=== PATIENT | female | born 1995 ===

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

== ENCOUNTER 2019-12-18 05:09 | Inpatient (IN) ==
[2019-12-18] MEDS ORDERED: LACTATED RINGERS 1,000 ML IV PRN (05:19)
[2019-12-18] MEDS ORDERED: MEPERIDINE 50 MG/1 ML VIAL IV PRN (05:19)
[2019-12-18] MEDS ORDERED: ONDANSETRON 4 MG/2 ML VIAL IV PRN (05:19)
[2019-12-18] MEDS ORDERED: BUTORPHANOL 2 MG/ML VIAL IV PRN (05:19)
[2019-12-18] MEDS ORDERED: OXYTOCIN/LR 20 UNIT/1,000 ML BAG IV SCH (05:30)
[2019-12-18 05:46] LABS: Basophils % 0.6 % (0.0-0.8); Eosinophils # 0.2 10*3/uL (0.0-0.87); Eosinophils % 3.3 % (0.00-10.9); Hematocrit 41.5 VOL% (35.7-47.0); Hemoglobin 13.5 GM/DL (12.0-16.0); Immature Granulocytes % 0.3 %; Immature Granulocytes Absolute 0.02 #; Lymphocytes # 1.9 10*3/uL (1.4-4.0); Lymphocytes % 27.8 % (21.3-54.2); Mean Corpuscular HGB Conc 32.5 GM/DL (32-36); Mean Corpuscular Volume 91.4 FL (87-102); Mean Platelet Volume 11.2 FL (9.6-12.0); Monocytes % 7.4 % (1.7-12.7); Neutrophils % 60.6 % (38.7-73.9); Platelet Count 207 T/CUMM (130-400); Red Blood Count 4.54 MC/CUMM (3.8-5.5); Red Cell Distribution Width 13.9 % (9.3-17.3); White Blood Count 6.9 T/CUMM (4-12)
[2019-12-18 06:08] LABS: Alanine Aminotransferase 28 U/L (13-56); Albumin 2.7 G/DL (3.4-5.0); Alkaline Phosphatase 240 U/L (45-117); Aspartate Amino Transferase 29 U/L (0-37); Bilirubin,Total < 0.39 MG/DL (0.2-1.0); Blood Urea Nitrogen 12 MG/DL (7-18); Calcium 9.1 MG/DL (8.5-10.1); Estimated Glom Filtration Rate 140 ML/MIN; Glucose 91 MG/DL (74-106); Osmolality,Calculated 267.2 MOS/KG (273-304); Total Protein 7.6 G/DL (6.4-8.3)
[2019-12-18] MEDS ORDERED: OXYTOCIN/LR 20 UNIT/1,000 ML BAG IV ONE ×3 (09:23→14:10)
[2019-12-18] MEDS ORDERED: miSOPROStoL 200 MCG TABLET ONE (09:23)
[2019-12-18] MEDS ORDERED: METHYLERGONOVINE 0.2 MG/1 ML AMP ONE (09:23)
[2019-12-18] MEDS ORDERED: TRANEXAMIC ACID 1,000 MG/10 ML VIAL ONE (09:23)
[2019-12-18] MEDS ORDERED: CARBOPROST TROMETHAMINE 250 MCG/ML AMP IM ONE (09:24)
[2019-12-18] MEDS ORDERED: LIDOCAINE 1% 50 ML VIAL ONE (11:11)
[2019-12-18 11:33] LABS: Cord Venous Blood HCO3 23.1 MMOL/L; Cord Venous Blood PCO2 41.7 MMHG; Cord Venous Blood PO2 32.3 MMHG
[2019-12-18] MEDS ORDERED: CITRIC ACID/SODIUM CITRATE 30 ML UDCUP ONE (12:02)
[2019-12-18] MEDS ORDERED: IBUPROFEN 800 MG TABLET PO PRN ×2 (13:00→13:20)
[2019-12-18] MEDS ORDERED: oxyCODONE/ACETAMINOPHEN 5-325 MG TABLET PO PRN ×3 (13:20→14:10)
[2019-12-18] MEDS ORDERED: HYDROCORTISONE 2.5% RECTAL CREAM 30 GM TUBE TOP PRN (14:10)
[2019-12-18] MEDS ORDERED: MEASLES/MUMPS/RUBELLA VACCINE 0.5 ML VIAL SUBCUT ONE (14:10)
[2019-12-18] MEDS ORDERED: RHO(D) IMMUNE GLOBULIN 300 MCG SYRINGE IM ONE (14:10)
[2019-12-18] MEDS ORDERED: WITCH HAZEL PADS 100/JAR TOP PRN (14:10)
[2019-12-18] MEDS ORDERED: DIPH/TET/ACEL PERT BOOSTER VACCINE 0.5 ML VIAL IM ONE (14:10)
[2019-12-18] MEDS ORDERED: BISACODYL 10 MG SUPP RECTAL PRN (14:10)
[2019-12-18] MEDS ORDERED: LANOLIN 50% CREAM 0.3 OZ TUBE TOP PRN (14:10)
[2019-12-18] MEDS ORDERED: ACETAMINOPHEN 325 MG TABLET PO PRN (14:10)
[2019-12-18] MEDS ORDERED: BENZOCAINE 20%/MENTHOL 0.5% SPRAY 56 GM CAN TOP PRN (14:10)
[2019-12-18] MEDS: DOCUSATE SODIUM 100 MG CAPSULE PO SCH (20:49)
[2019-12-19 03:16] LABS: Basophils % 0.3 % (0.0-0.8); Eosinophils # 0.2 10*3/uL (0.0-0.87); Eosinophils % 2.3 % (0.00-10.9); Hematocrit 34.7 VOL% (35.7-47.0); Hemoglobin 11.1 GM/DL (12.0-16.0); Immature Granulocytes % 0.3 %; Immature Granulocytes Absolute 0.02 #; Lymphocytes # 2.3 10*3/uL (1.4-4.0); Lymphocytes % 29.7 % (21.3-54.2); Mean Corpuscular Volume 90.8 FL (87-102); Mean Platelet Volume 11.8 FL (9.6-12.0); Monocytes % 7.2 % (1.7-12.7); Neutrophils % 60.2 % (38.7-73.9); Platelet Count 190 T/CUMM (130-400); Red Blood Count 3.82 MC/CUMM (3.8-5.5); Red Cell Distribution Width 13.9 % (9.3-17.3); White Blood Count 7.7 T/CUMM (4-12)
[2019-12-19] MEDS: DOCUSATE SODIUM 100 MG CAPSULE PO SCH ×2 (08:55→20:57)
[2019-12-20 07:40] VITALS: BP 123/72
[2019-12-20] MEDS: DOCUSATE SODIUM 100 MG CAPSULE PO SCH (08:30)
== END 2019-12-20 12:50 | disposition home or self-care (01) | DRG 560 ==
LOC: N.LD 05:09 → N.OB 12:37
PROVIDERS: ADMIT Obstetrics & Gynecology; ATTEND Obstetrics & Gynecology